=== PATIENT | female | born 1935 | race Caucasian/White ===

== ENCOUNTER 2019-06-03 11:38 | Inpatient (IN) ==
[2019-06-03 13:07] LABS: Basophils % 0.3 %; Eosinophils # 0.2 K/mcL (0.0-0.6); Eosinophils % 2.2 %; Hematocrit 32.8 % (35.3-44.9); Hemoglobin 10.6 g/dL (11.5-15.4); Immature Granulocytes % 0.1 % (0-4); Lymphocytes # 1.5 K/mcL (0.6-4.6); Lymphocytes % 22.4 %; Mean Corpuscular HGB Conc 32.3 g/dL (31.6-35.5); Mean Corpuscular Hemoglobin 29.3 pg (28.0-33.3); Mean Corpuscular Volume 90.6 fL (83.0-100.0); Mean Platelet Volume 8.8 fL (9.4-12.4); Monocytes # 0.7 K/mcL (0.0-1.3); Monocytes % 9.8 %; Neutrophils # 4.4 K/mcL (1.6-8.9); Platelet Count 211 K/mcL (140-400); Red Blood Count 3.62 M/mcL (3.82-4.97); Red Cell Distribution Width 14.1 % (11.5-14.5); Segmented Neutrophils % 65.2 %; White Blood Count 6.7 K/mcL (4.3-11.1)
[2019-06-03 13:22] LABS: Activated Partial Thrombo Time 47.8 Seconds (26.0-36.0)
[2019-06-03 13:25] LABS: BUN/Creatinine Ratio 31 (6-26); Blood Urea Nitrogen 18 mg/dL (8-23); Calcium 8.9 mg/dL (8.6-10.3); Carbon Dioxide 32 mEq/L (23-29); Chloride 101 mEq/L (98-107); Glucose 81 mg/dL (70-105); INR 4.4; Osmolality,Calculated 291 (280-300); Potassium 3.7 mEq/L (3.5-5.1); Prothrombin Time 50.4 Seconds (9.4-12.1); Sodium 140 mEq/L (136-145); eGFR For African Americans > 60 (> 60); eGFR For Non-African Americans > 60 (> 60)
--- NOTE | 2019-06-03 13:25 | Emergency Department Note ---
Disposition Clinical Impression: Supratherapeutic INR Right leg DVT Qualifiers: Affected thrombotic vein of extremity: unspecified vein of extremity Chronicity: unspecified Qualified Code(s): I82.401 - Acute embolism and thrombosis of unspecified deep veins of right lower extremity Disposition: Admitted As Inpatient Condition: Good Time of Disposition: 14:51 General Adult HPI - General Chief complaint: ED Extremity Problem,Nontraumatic Stated complaint: RLE blood clot Time Seen by Provider: 06/03/19 11:49 Source: patient Mode of arrival: ambulatory Limitations: no limitations Nursing Notes Reviewed: Yes Vital Signs Reviewed: Yes - History of Present Illness HPI Narrative: Patient is a 84-year-old female that presents emergency Department with reports of a DVT in the right leg. Patient states that she has had persistent pain and swelling to the right lower extremity despite being on Coumadin. Patient states that she was diagnosed the DVT approximately 3 weeks ago. Patient states that she had an ultrasound this morning and the results. We sent to Dr. Laird. The patient called and spoke with Dr. Laird and he recommended that she come to the emergency department. Patient denies any chest pain or shortness of breath. Patient states that she was told that she should come here to the emergency department be evaluated due to concern for potential thrombectomy. Pain Scale: 5 - Related Data Home Medications Medication Instructions Recorded Confirmed Anastrozole [Arimidex] 1 mg PO DAILY 06/03/19 06/03/19 Aspirin 325 mg PO DAILY 06/03/19 06/03/19 Citalopram Hydrobromide 20 mg PO DAILY 06/03/19 06/03/19 [Citalopram HBr] Lisinopril 40 mg PO DAILY 06/03/19 06/03/19 Metoprolol Tartrate [Lopressor] 50 mg PO BID 06/03/19 06/03/19 Warfarin [Coumadin] 5 mg PO 1800 06/03/19 06/03/19 Allergies Allergy/AdvReac Type Severity Reaction Status Date / Time No Known Allergies Allergy Verified 02/25/19 08:45 All systems ED: reviewed and negative except as stated. Constitutional: Denies: fever Cardiovascular: Denies: chest pain Respiratory: Denies: dyspnea Gastrointestinal: Denies: abdominal pain, nausea, vomiting Genitourinary: Denies: dysuria, frequency, hematuria Musculoskeletal: Reports: other (Right leg pain) Integumentary: Reports: other (Bruising to the right leg) Neurological: Denies: weakness, numbness, paresthesias Past Medical History - Past Medical History Medical history: Reports: asthma, cancer, DVT, hypertension Surgical history: Reports: appendectomy, breast surgery, other Psychiatric history: Reports: no psych history - Social History Smoking Status: Never smoker Smokeless Tobacco Status: No Alcohol use: Reports: none Drug use: Reports: none Physical Exam - General Limitations: no limitations General appearance: alert, in no apparent distress - Head Head exam: atraumatic, normocephalic - Eye Eye exam: Present: normal appearance, EOMI - Neck Neck exam: Present: normal inspection, full ROM, trachea midline - Respiratory Respiratory exam: Present: normal lung sounds bilaterally. Absent: respiratory distress, wheezes - Cardiovascular Cardiovascular exam: Present: regular rate, normal rhythm, normal heart sounds, +S1, +S2 - Abdominal Exam Abdominal exam: Present: soft, Non-Tender, normal bowel sounds - Extremities Exam Extremities exam: Present: other (Patient has swelling to the right lower ext remity. Patient has ecchymosis over the right knee and in her right thigh. Patient states is been there for approximately one week. Patient has 2+ pulses in the DP and PT distribution. Patient has tenderness over the anterior aspect of the thigh.) - Neurological Exam Neurological exam: Present: alert, oriented X3 - Psychiatric Psychiatric exam: Present: normal affect, normal mood - Skin Skin exam: Present: warm, dry, other (Ecchymosis over the medial aspect of the right thigh and right knee.) Course Vital Signs Temperature 98.3 F 06/03/19 11:39 Pulse Rate 69 06/03/19 11:39 Respiratory Rate 18 06/03/19 11:39 Blood Pressure 214/99 06/03/19 11:39 O2 Sat by Pulse Oximetry 96 06/03/19 11:39 Temperature 98.6 F 06/03/19 18:48 Pulse Rate 62 06/03/19 18:48 Respiratory Rate 17 06/03/19 18:48 Blood Pressure 170/73 06/03/19 18:48 O2 Sat by Pulse Oximetry 95 06/03/19 18:48 Oxygen Delivery Oxygen Delivery Room Air Medical Decision Making - MDM Narrative Medical decision making narrative: Due the patient's into emergency department with reports of DVT in the right lower extremity we we will get basic laboratory testing as well as a PT and INR. Patient had an elevated INR of 4.4. Patient states she has been taking her Coumadin as prescribed. Patient had an ultrasound that was obtained this morning an outside facility. We attempted to get the report multiple times however we were unsuccessful. The patient had a repeat DVT study done of the right lower extremity. It was reported as a cute on chronic clot without complete occlusion from the windshield repair technician. Due to there being acute on chronic findings on the ultrasound as well as an elevated INR I think it is most appropriate for the patient to be admitted to the hospital for further evaluation and management. Called and spoke with the admitting hospitalist . - Medical Records Medical records reviewed: Yes I reviewed the patient's medical records. - Lab Data Lab results reviewed: Yes I reviewed the patient's lab results. Result diagrams: 06/03/19 17:06 06/03/19 12:53 Lab Results 06/03/19 06/03/19 06/03/19 Range/Units 12:53 12:53 12:53 WBC 6.7 (4.3-11.1) K/mcL RBC 3.62 L (3.82-4.97) M/mcL Hgb 10.6 L (11.5-15.4) g/dL Hct 32.8 L (35.3-44.9) % MCV 90.6 (83.0-100.0) fL MCH 29.3 (28.0-33.3) pg MCHC 32.3 (31.6-35.5) g/dL RDW 14.1 (11.5-14.5) % Plt Count 211 (140-400) K/mcL MPV 8.8 L (9.4-12.4) fL Immature Gran % 0.1 (0-4) % Seg Neutrophils % 65.2 % Lymphocytes % 22.4 % Monocytes % 9.8 % Eosinophils % 2.2 % Basophils % 0.3 % Neutrophils # 4.4 (1.6-8.9) K/mcL Lymphocytes # 1.5 (0.6-4.6) K/mcL Monocytes # 0.7 (0.0-1.3) K/mcL Eosinophils # 0.2 (0.0-0.6) K/mcL Basophils # 0.0 (0.0-0.2) K/mcL PT 50.4 H* (9.4-12.1) Seconds INR 4.4 H* APTT 47.8 H (26.0-36.0) Seconds Sodium 140 (136-145) mEq/L Potassium 3.7 (3.5-5.1) mEq/L Chloride 101 (98-107) mEq/L Carbon Dioxide 32 H (23-29) mEq/L BUN 18 (8-23) mg/dL Creatinine 0.58 L (0.60-1.20) mg/dL Est GFR ( Amer) > 60 (> 60) Est GFR (Non-Af Amer) > 60 (> 60) BUN/Creatinine Ratio 31 H (6-26) Glucose 81 (70-105) mg/dL Calculated Osmolality 291 (280-300) Calcium 8.9 (8.6-10.3) mg/dL - Radiology Data Radiology results reviewed: Yes I reviewed the patient's radiology results. Attestation Statement - Attestation Attestation: I, Manfred Acosta, examined this patient and my medical decision-making was reviewed with the CHEMICAL MACHINE TENDER/PA/Advanced Practice Nurse/Resident Physician. I agree with the documented findings, disposition and treatment plan as described except to the extent set forth below. 84-year-old female presents emergency Department with concerns of DVT the right lower show any. Patient states she had one performed at outside facility. We are unable to obtain the imaging and therefore it was repeated. A likely shows an acute on chronic clot to the right lower extremity. Patient had increased pain to the right lower extremity. She is currently taking Coumadin and her INR was significantly elevated. She denies recent trauma however she does have some ecchymosis to the right lower extremity. Patient will be admitted to hospitalist for further care and evaluation. She was updated regarding her results. Patient denied chest pain or shortness of breath or palpitations.
[2019-06-03 15:56] LABS: INR 4.9; Prothrombin Time 55.4 Seconds (9.4-12.1)
--- NOTE | 2019-06-03 15:56 | Internal Med History&Physical ---
Date of Encounter: 06/03/19 Time of Encounter: 15:47 Internal Medicine - H&P: HPI Chief complaint: DVT Admitted From: Emergency Dept Plans for Post Hospital Care: Home History of present illness: Ms. Bailey is a 84 year old female w/PMHx s/p mastectomy for breast cancer, HTN, asthma. Family history significant for DVT, factor V leiden. Reports 3 week history of right sided lower extremity swelling, pain, ecchymosis; being treated with Warfarin. Ultrasound of the RLE was performed at an outside facility this morning, we are still attempting to obtain results. Repeat U/S performed in the ED demonstrated acute on chronic clot w/o complete occlusion by mathematical technician. Awaiting radiology for confirmation. Past Med Surg Social Fam HX - Past Medical History Medical history: asthma, cancer, DVT, hypertension Additional medical history: breast cancer, right. fibrocystic breast disease. richards's cyst. osteoarthritis, florinda left knee Psychiatric history: no psych history - Past Surgical History Surgical History: appendectomy, breast surgery, other Additional surgical history: tri-cut right breast biopsy - patient denies. right breast aspiration. D&C - Social History Smoking Status: Never smoker Smokeless Tobacco Status: No Alcohol use: none Drug use: none - Family History Father Hx Family Cancer: (lung cancer) Internal Medicine - H&P: Meds Anastrozole [Arimidex] 1 mg PO DAILY 06/03/19 [History] Aspirin 325 mg PO DAILY 06/03/19 [History] Citalopram Hydrobromide [Citalopram HBr] 20 mg PO DAILY 06/03/19 [History] Lisinopril 40 mg PO DAILY 06/03/19 [History] Metoprolol Tartrate [Lopressor] 50 mg PO BID 06/03/19 [History] Warfarin [Coumadin] 5 mg PO 1800 06/03/19 [History] Allergy/AdvReac Type Severity Reaction Status Date / Time No Known Allergies Allergy Verified 02/25/19 08:45 All Systems PM: A 10-system review of systems was performed and is negative for pertinent findings except as documented above in the HPI. - Constitutional Vitals: Temp Pulse Resp BP Pulse Ox 98.3 F 69 18 180/81 100 06/03/19 11:39 06/03/19 15:43 06/03/19 15:43 06/03/19 15:43 06/03/19 15:43 Internal Med - H&P Results - Labs CBC & Chem 7: 06/03/19 12:53 06/03/19 12:53 Labs: Short CBC 06/03/19 Range/Units 12:53 WBC 6.7 (4.3-11.1) K/mcL Hgb 10.6 L (11.5-15.4) g/dL Hct 32.8 L (35.3-44.9) % Plt Count 211 (140-400) K/mcL Neutrophils # 4.4 (1.6-8.9) K/mcL BMP 06/03/19 12:53 Sodium 140 Potassium 3.7 Chloride 101 Carbon Dioxide 32 H BUN 18 Creatinine 0.58 L Glucose 81 Calcium 8.9
[2019-06-03] MEDS ORDERED: Acetaminophen 325 MG TABLET PO PRN (16:08)
[2019-06-03] MEDS ORDERED: Naloxone 0.4 MG/ML INJ IVP PRN (16:08)
--- NOTE | 2019-06-03 16:08 | Internal Med History&Physical ---
<Ignacio Lewis M - Last Filed: 06/03/19 17:19> Date of Encounter: 06/03/19 Time of Encounter: 16:03 Internal Medicine - H&P: HPI Chief complaint: DVT History of present illness: Ms. Bailey is a 84 year old female w/PMHx s/p mastectomy for breast cancer, HTN, asthma. Family history significant for DVT, factor V leiden. Reports 3 week history of right sided lower extremity swelling, pain, ecchymosis; being treated with Warfarin. Ultrasound of the RLE was performed at an outside facility this morning, we are still attempting to obtain results. Repeat U/S performed in the ED demonstrated acute on chronic clot w/o complete occlusion by respiratory support technician. Awaiting radiology for confirmation. She has denied cp, sob, cough, fevers, chills. History of ductal carcinoma of breast. Treated with mastectomy in January with subsequent radiation therapy. Patient reports that she was started on warfarin without a heparin bridge. We will attempt to contact provider for further information. Coags were drawn in ED PT 50.4, INR 4.4, PTT 47.8. Pt states that she is taking her warfarin as prescribed. She has a mild anemia. No RICO. No leukocytosis. Past Med Surg Social Fam HX - Past Medical History Medical history: asthma, cancer, DVT, hypertension Additional medical history: breast cancer, right. fibrocystic breast disease. richards's cyst. osteoarthritis, florinda left knee Psychiatric history: no psych history - Past Surgical History Surgical History: appendectomy, breast surgery, other Additional surgical history: tri-cut right breast biopsy - patient denies. right breast aspiration. D&C - Social History Smoking Status: Never smoker Smokeless Tobacco Status: No Alcohol use: none Drug use: none - Family History Father Hx Family Cancer: (lung cancer) Mother Living Status: Age at : 87 Cause of : stroke Hx Family Cardiac Disorders: Yes (HTN) Hx Family Neuromuscular Disorders: Yes Hx Family Neurologic Disorders: Yes (Stroke) Internal Medicine - H&P: Meds Anastrozole [Arimidex] 1 mg PO DAILY 06/03/19 [History] Aspirin 325 mg PO DAILY 06/03/19 [History] Citalopram Hydrobromide [Citalopram HBr] 20 mg PO DAILY 06/03/19 [History] Lisinopril 40 mg PO DAILY 06/03/19 [History] Metoprolol Tartrate [Lopressor] 50 mg PO BID 06/03/19 [History] Warfarin [Coumadin] 5 mg PO 1800 06/03/19 [History] Allergy/AdvReac Type Severity Reaction Status Date / Time No Known Allergies Allergy Verified 02/25/19 08:45 All Systems PM: A 10-system review of systems was performed and is negative for pertinent findings except as documented above in the HPI. - Constitutional Constitutional: no chills, no fatigue, no fever(s) - EENT Eyes: no change in vision, no diplopia, no loss of vision Ears: no decreased hearing, no tinnitus Nose, mouth and throat: no change in voice, no dysphagia, no neck mass, no sore throat - Breasts Breasts: no pain, no skin changes, no swelling - Cardiovascular Cardiovascular ROS IM: lightheadedness (occasional, age related orthostasis), no chest pain, no diaphoresis, no dyspnea, no irregular heart rhythm, no palpitations - Respiratory Respiratory: no cough, no hemoptysis, no wheezing - Gastrointestinal Gastrointestinal: no abdominal pain, no change in bowel habits, no constipation, no diarrhea, no heartburn, no nausea, no vomiting - Genitourinary Genitourinary: no breast pain, no breast skin changes, no difficulty urinating, no difficulty voiding, no flank pain, no urinary incontinence Menstruation: post menopausal - Musculoskeletal Musculoskeletal ROS IM: arthralgias, stiffness - Integumentary Additional comments: eccymosis, erythema, edema of RLE extending from ankle to medial thigh. - Neurological Neurological ROS: abnormal gait (secondary to dvt), no behavioral changes, no confusion, no dizziness, no focal weakness, no paresthesias, no vertigo - Psychiatric Psychiatric: anxiety, no change in appetite, no depression, no hallucinations, no paranoia - Endocrine Endocrine IM: no excessive sweating - Hematologic/Lymphatic Hematologic/Lymphatic: easy bleeding, easy bruising Additional comments: warfarin therapy - Allergic/Immunologic Allergic/Immunologic: no tongue swelling, no throat swelling, no itchy eyes, no wheezing - Constitutional Vitals: Temp Pulse Resp BP Pulse Ox 98.3 F 69 18 180/81 100 06/03/19 11:39 06/03/19 15:43 06/03/19 15:43 06/03/19 15:43 06/03/19 15:43 General appearance: Present: A&O X 3. Absent: no acute distress Exam: see below - Head Head exam: Present: atraumatic, normocephalic - Eye Eye exam: Present: EOMI, normal appearance, conjuntiva pink. Absent: scleral icterus Pupils: Present: PERRL - ENT ENT exam: Present: mucous membranes moist, normal oropharynx - Neck Neck exam general surgery: Present: supple. Absent: lymphadenopathy, tenderness - Respiratory Respiratory exam: Present: CTAB. Absent: chest wall tenderness, rales, respiratory distress, rhonchi, wheezes - Cardiovascular Cardiovascular exam: Present: RRR, +S1, +S2. Absent: diastolic murmur, gallop, JVD, systolic murmur - GI/Abdominal GI/Abdominal exam: Present: normal bowel sounds, soft. Absent: distended, hep atomegaly, rebound, rigid, tenderness - Extremities Exam Extremities exam: Absent: cyanotic Additional comments: RLE: severe swelling of the right leg from the right ankle to medial thigh. Significant ecchymosis present throughout with heat changes compared to the left. - Expanded Lower Extremities Exam Lower Leg exam: Present: ecchymosis, erythema, swelling, tenderness - Neurological Exam Neurological exam: Present: alert, CN II-XII intact, oriented X3, no focal deficits - Psychiatric Psychiatric exam: Absent: anxious, depressed - Skin Additional comments: erythema, ecchymosis, swelling of the RLE Internal Med - H&P Results - Labs CBC & Chem 7: 06/03/19 12:53 06/03/19 12:53 Labs: Short CBC 06/03/19 Range/Units 12:53 WBC 6.7 (4.3-11.1) K/mcL Hgb 10.6 L (11.5-15.4) g/dL Hct 32.8 L (35.3-44.9) % Plt Count 211 (140-400) K/mcL Neutrophils # 4.4 (1.6-8.9) K/mcL BMP 06/03/19 12:53 Sodium 140 Potassium 3.7 Chloride 101 Carbon Dioxide 32 H BUN 18 Creatinine 0.58 L Glucose 81 Calcium 8.9 - Assessment and Plan (1) Right leg DVT Current Visit: Yes Status: Acute Assessment and plan: Patient reports being treated with warfarin monotherapy for 3 weeks. Has been having progressive swelling of the RLE since. 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 Family hx of factor V leiden. Pt also has recent history of breast malignancy. Her DVT could be related to hypercoaguble state, warfarin monotherapy, or idiopathic. - D/C home warfarin and start Heparin IVP Q6H with heparin drip for progressive DVT. - Coags including PT, INR, PTT daily. - Monitor platelets daily with CBC. Qualifiers: Affected thrombotic vein of extremity: unspecified vein of extremity Chronicity: unspecified Qualified Code(s): I82.401 - Acute embolism and thrombosis of unspecified deep veins of right lower extremity (2) Migratory thrombophlebitis Current Visit: Yes Status: Suspected Assessment and plan: Based on recent breast cancer history we suspect possibility of Migratory thrombophlebitis. Although there is family history of factor V, it is unlikely that it would present at her age. No significant increased risk for DVT in relation to lifestyle. Pt is a non-smoker, active. - Consult Oncology/Hematology. Recommends continue heparin drip at this time and agreed to take on case. Appreciate their assistance. - CT scan RLE for further evaluation. (3) Supratherapeutic INR Current Visit: Yes Status: Acute Assessment and plan: Initial INR was 4.4. Pt reports compliance with warfarin therapy. - We will hold home warfarin at this time. - Pharmacy and nursing notified of results, will start heparin drip. (4) Breast cancer, right Current Visit: No Status: Acute Assessment and plan: Pt has recent history of right mastectomy for ductal carcinoma. - Oncology consulted for evaluation. Qualifiers: Breast location: combined nipple and areola Estrogen receptor status: positive Patient sex: female Qualified Code(s): C50.011 - Malignant neoplasm of nipple and areola, right female breast; Z17.0 - Estrogen receptor positive status [ER+] (5) Hypertension Current Visit: Yes Status: Acute Assessment and plan: BP trending 214-180/99-81 over the last two hours. Pt is asymptomatic at this time. Creatinine WNL. Denies confusion, visual changes, WRIGHT. - Start home Lisinopril and Lopressor for BP control. - Telemetry until BP control. Qualifiers: Qualified Code(s): I10 - Essential (primary) hypertension - Time Spent With Patient Total time spent is greater than 50% in coordination of care (as documented) at patient's floor/unit and/or counseling patient: <Milton Ervin - Last Filed: 06/03/19 19:38> Date of Encounter: 06/03/19 Internal Medicine - H&P: HPI History of present illness: Ms. Bailey is a 84 year old female All Systems PM: A 10-system review of systems was performed and is negative for pertinent findings except as documented above in the HPI. - Constitutional Vitals: Temp Pulse Resp BP Pulse Ox 98.6 F 62 17 170/73 95 06/03/19 18:48 06/03/19 18:48 06/03/19 18:48 06/03/19 18:48 06/03/19 18:48 Internal Med - H&P Results - Labs CBC & Chem 7: 06/03/19 17:06 06/03/19 12:53 Labs: Short CBC 06/03/19 06/03/19 Range/Units 12:53 17:06 WBC 6.7 6.2 (4.3-11.1) K/mcL Hgb 10.6 L 11.6 (11.5-15.4) g/dL Hct 32.8 L 36.1 (35.3-44.9) % Plt Count 211 197 (140-400) K/mcL Neutrophils # 4.4 (1.6-8.9) K/mcL BMP 06/03/19 12:53 Sodium 140 Potassium 3.7 Chloride 101 Carbon Dioxide 32 H BUN 18 Creatinine 0.58 L Glucose 81 Calcium 8.9 - Assessment and Plan (1) Acute deep vein thrombosis (DVT) of right popliteal vein Current Visit: Yes Status: Acute (2) Hypertension Current Visit: Yes Status: Chronic Qualifiers: Hypertension type: essential hypertension Qualified Code(s): I10 - Essential (primary) hypertension (3) Migratory thrombophlebitis Current Visit: Yes Status: Suspected (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 I agree with the documented findings, disposition and treatment plan as described except to the extent set forth below. 84 y/o female with hx breast cancer and recent diagnosis of RLE DVT presented to ED with increased clot in R leg and increased pain. INR 4.4. Pt has significant pain in leg. Swelling and ecchymosis as well. No fever or chills. No CP or SOB Exam Alert [place]. Mucus membranes dry Heart not tachy now No wheeze Abd nontender RLE with edema to groin. Ecchymosis near knee and thigh. Tender to palpation I/P 1. RLE DVT ? if related to coumadin started with no heparin bridge versus cancer associated (Trousseau syndrome). Heparin drip started monitoring for bleeding CT of leg to r/o hematoma Heme consult
[2019-06-03] MEDS ORDERED: *HR* Heparin 5,000 UNIT/ML VIAL IVP ONE (16:49)
[2019-06-03] MEDS ORDERED: *HR* Heparin 5,000 UNIT/ML VIAL IVP PRN ×2 (16:49)
[2019-06-03] MEDS: Heparin 25,000 UNIT/250 ML D5W 25,000 UNIT/250 ML IV.SOLN IVC SCH (17:36)
[2019-06-03] MEDS: Lisinopril 20 MG TABLET PO SCH (17:36)
[2019-06-03 17:47] LABS: Hematocrit 36.1 % (35.3-44.9); Hemoglobin 11.6 g/dL (11.5-15.4); Mean Corpuscular HGB Conc 32.1 g/dL (31.6-35.5); Mean Corpuscular Hemoglobin 29.7 pg (28.0-33.3); Mean Corpuscular Volume 92.6 fL (83.0-100.0); Platelet Count 197 K/mcL (140-400); Red Cell Distribution Width 14.2 % (11.5-14.5); White Blood Count 6.2 K/mcL (4.3-11.1)
[2019-06-03 17:55] LABS: Heparin anti-factor XA UFH 0.04 IU/mL (0.30-0.70)
[2019-06-03 17:58] LABS: INR 4.4; Prothrombin Time 49.6 Seconds (9.4-12.1)
[2019-06-03] MEDS ORDERED: NIFEdipine 10 MG CAPSULE PO ONE (23:06)
[2019-06-04 01:27] LABS: Basophils % 0.5 %; Eosinophils # 0.3 K/mcL (0.0-0.6); Hematocrit 31.4 % (35.3-44.9); Hemoglobin 10.2 g/dL (11.5-15.4); Immature Granulocytes % 0.3 % (0-4); Lymphocytes # 1.6 K/mcL (0.6-4.6); Lymphocytes % 25.7 %; Mean Corpuscular HGB Conc 32.5 g/dL (31.6-35.5); Mean Corpuscular Hemoglobin 29.7 pg (28.0-33.3); Mean Corpuscular Volume 91.3 fL (83.0-100.0); Mean Platelet Volume 9.1 fL (9.4-12.4); Monocytes # 0.7 K/mcL (0.0-1.3); Monocytes % 10.5 %; Neutrophils # 3.7 K/mcL (1.6-8.9); Platelet Count 194 K/mcL (140-400); Red Blood Count 3.44 M/mcL (3.82-4.97); Red Cell Distribution Width 14.2 % (11.5-14.5); White Blood Count 6.3 K/mcL (4.3-11.1)
[2019-06-04 01:46] LABS: BUN/Creatinine Ratio 23 (6-26); Blood Urea Nitrogen 15 mg/dL (8-23); Calcium 8.6 mg/dL (8.6-10.3); Carbon Dioxide 30 mEq/L (23-29); Chloride 102 mEq/L (98-107); Glucose 167 mg/dL (70-105); Osmolality,Calculated 289 (280-300); Potassium 3.4 mEq/L (3.5-5.1); Sodium 137 mEq/L (136-145); eGFR For African Americans > 60 (> 60); eGFR For Non-African Americans > 60 (> 60)
[2019-06-04 01:59] LABS: Activated Partial Thrombo Time 190.4 Seconds (26.0-36.0); INR 4.8; Prothrombin Time 54.4 Seconds (9.4-12.1)
[2019-06-04] MEDS: Aspirin 325 MG TABLET PO SCH (08:38)
[2019-06-04] MEDS: Anastrozole 1 MG TABLET PO SCH (08:38)
[2019-06-04] MEDS: Lisinopril 20 MG TABLET PO SCH (08:40)
--- NOTE | 2019-06-04 09:39 | Internal Med Progress Note ---
<DebbieJarenIgnacio M - Last Filed: 06/04/19 09:36> Hospitalist Progress Note - Encounter Date of Encounter: 06/04/19 Time of Encounter: 09:20 - Subjective Interval History: Pt awake in bed. No family present at this time. States that she is very active so she is anxious to get out of bed. RLE pain is reported as mild, not improved since admission. Denies cp, sob, n/v, fever, chills. - Exam Vitals: Temp Pulse Resp BP Pulse Ox 98.0 F 73 14 169/72 94 06/04/19 06:33 06/04/19 06:33 06/04/19 06:33 06/04/19 06:33 06/04/19 06:33 Exam: General: A&O X 3. Absent: no acute distress - Head atraumatic, normocephalic - Eye PERRL, EOMI. - ENT mucous membranes moist, normal oropharynx - Neck supple. No lymphadenopathy or tenderness - Respiratory CTAB. No rales, respiratory distress, rhonchi, wheezes - Cardiovascular RRR, +S1, +S2. No JVD, murmurs, rubs, gallops. - GI/Abdominal normal bowel sounds, soft. no distention, hepatomegaly, rebound, rigidity, or tenderness - Extremities Exam RLE: swelling of the right leg from the right ankle to medial thigh appears to be unchanged from previous exam. Significant ecchymosis throughout that has been marked. - Neurological Exam alert, oriented X3, no focal deficits - Skin erythema, ecchymosis, swelling of the RLE - Assessment and Plan (1) Right leg DVT Current Visit: Yes Status: Acute Assessment and Plan: No changes since initiation of Heparin. Warfarin is being held. Pt reports mild pain of the RLE that is unchanged. U/S revealed chronic R femoral thrombus with acute post tibial, popliteal, and peroneal thrombi. - Continue Heparin IVP Q6H with heparin drip. - Coags including PT, INR, PTT daily. - Monitor platelets daily with CBC. (2) Migratory thrombophlebitis Current Visit: Yes Status: Suspected Assessment and Plan: Possibility of migratory thrombophlebitis secondary to breast ca history. Onc/hem was consulted and recommended continuation of heparin drip. Hold warfarin. CT revealed significant edema vs cellulitis. Unlikely to be cellulitis based on examination and laboratory findings. No leukocytosis, fevers, chills. (3) Supratherapeutic INR Current Visit: Yes Status: Acute Assessment and Plan: INR increased from 4.4 to 4.8 since holding warfarin and starting heparin therapy for acute DVT. This is expected and we will continue to monitor with routine coags including CBC. (4) Breast cancer, right Current Visit: No Status: Chronic Assessment and Plan: Onc/hematology was consulted for possibility of migratory thrombophlebitis. Recommended continuation of heparin and holding warfarin at this time. (5) Hypertension Current Visit: Yes Status: Chronic Assessment and Plan: HTN has improved since admission. Was 187/68 at admission. Now trending at the upper 160s/70s. Pt is asymptomatic. - Continue to monitor daily. Tele has been discontinued. - Continue home lisinopril and metoprolol. - Time Spent with Patient Total time spent is greater than 50% in coordination of care (as documented) at patient's floor/unit and/or counseling patient: Internal Medicine: Result - Labs CBC & Chem 7: 06/04/19 00:54 06/04/19 00:54 Labs: Short CBC 06/03/19 06/03/19 06/04/19 Range/Units 12:53 17:06 00:54 WBC 6.7 6.2 6.3 (4.3-11.1) K/mcL Hgb 10.6 L 11.6 10.2 L (11.5-15.4) g/dL Hct 32.8 L 36.1 31.4 L (35.3-44.9) % Plt Count 211 197 194 (140-400) K/mcL Neutrophils # 4.4 3.7 (1.6-8.9) K/mcL BMP 06/03/19 06/04/19 12:53 00:54 Sodium 140 137 Potassium 3.7 3.4 L Chloride 101 102 Carbon Dioxide 32 H 30 H BUN 18 15 Creatinine 0.58 L 0.64 Glucose 81 167 H Calcium 8.9 8.6 - ABG Interpretation ABG results: PT/INR, D-dimer PT 54.4 Seconds (9.4-12.1) H* 06/04/19 00:54 - Impressions Impressions Lower Extremity CT 06/03/19 16:54 IMPRESSION: 1. Circumferential subcutaneous fat stranding in the right lower extremity most severe about the ankle and distal calf and tapering proximally compatible with cellulitis versus bland edema. No drainable fluid collection, soft tissue gas, or evidence of fasciitis. 2. No acute osseous abnormality. 3. Somewhat ill-defined fluid in the soft tissues lateral to the right femoral greater trochanter nonspecific but suggesting trochanteric or sub gluteus medius bursitis. Fatty atrophy of the right gluteus medius and minimus muscles compatible with chronic tears. D/ / Juan Valverde MD / Juan Valverde MD Interpreting Provider: Juan Valverde MD Consult Discharge Plan - Plan Referrals: Hector Laird MD [Primary Care Provider] - (Appt has been requested. 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 (5) Supratherapeutic INR Current Visit: Yes Status: Acute - Time Spent with Patient Total time spent is greater than 50% in coordination of care (as documented) at patient's floor/unit and/or counseling patient: Internal Medicine: Result - Labs CBC & Chem 7: 06/04/19 00:54 06/04/19 00:54 Labs: Short CBC 06/04/19 Range/Units 00:54 WBC 6.3 (4.3-11.1) K/mcL Hgb 10.2 L (11.5-15.4) g/dL Hct 31.4 L (35.3-44.9) % Plt Count 194 (140-400) K/mcL Neutrophils # 3.7 (1.6-8.9) K/mcL BMP 06/04/19 00:54 Sodium 137 Potassium 3.4 L Chloride 102 Carbon Dioxide 30 H BUN 15 Creatinine 0.64 Glucose 167 H Calcium 8.6 - ABG Interpretation ABG results: PT/INR, D-dimer PT 54.4 Seconds (9.4-12.1) H* 06/04/19 00:54 - Impressions Impressions Lower Extremity CT 06/03/19 16:54 IMPRESSION: 1. Circumferential subcutaneous fat stranding in the right lower extremity most severe about the ankle and distal calf and tapering proximally compatible with cellulitis versus bland edema. No drainable fluid collection, soft tissue gas, or evidence of fasciitis. 2. No acute osseous abnormality. 3. Somewhat ill-defined fluid in the soft tissues lateral to the right femoral greater trochanter nonspecific but suggesting trochanteric or sub gluteus medius bursitis. Fatty atrophy of the right gluteus medius and minimus muscles compatible with chronic tears. D/ / Juan Valverde MD / Juan Valverde MD Interpreting Provider: Juan Valverde MD - Attending Attestation I examined this patient and my medical decision-making was reviewed with the Resident Physician on 06/04/19. I agree with the documented findings, disposition and treatment plan as described except to the extent set forth below. Ms Bailey is currently admitted for acute on chronic DVT R leg. She remains moderate to high risk due to potential for worsening clinical status. Ms Bailey is feeling OK. No fever or chills. No CP or SOB. Swelling a little better. Exam Alert. Comfortable. NC. Mucus membranes dry. EOMI. Neck supple. Heart reg and not tachy. No wheeze. Abd soft. No rash. Less edema R leg. I/P 1. DVT - continue heparin. Heme consult. <Ignacio Lewis - Last Filed: 06/04/19 09:36> (1) Right leg DVT Qualifiers: Affected thrombotic vein of extremity: unspecified vein of extremity Chronicity: unspecified Qualified Code(s): I82.401 - Acute embolism and thrombosis of unspecified deep veins of right lower extremity (4) Breast cancer, right Qualifiers: Breast location: combined nipple and areola Estrogen receptor status: positive Patient sex: female Qualified Code(s): C50.011 - Malignant neoplasm of nipple and areola, right female breast; Z17.0 - Estrogen receptor positive status [ER+] (5) Hypertension Qualifiers: Hypertension type: essential hypertension Qualified Code(s): I10 - Essential (primary) hypertension <Milton Ervin - Last Filed: 06/04/19 18:05> (2) Hypertension Qualifiers: Hypertension type: essential hypertension Qualified Code(s): I10 - Essential (primary) hypertension
--- NOTE | 2019-06-04 12:22 | Oncology Inp Consult Note ---
Date of Encounter: 06/04/19 Time of Encounter: 12:00 Assessment and Plan (1) Right leg DVT Status: Acute Assessment and plan: History of chronic thrombosis, with acute DVT, patient was on Coumadin with supratherapeutic INR. Heparin initiated with symptomatic findings of acute DVT. Patient also has bursitis as noted in CT imaging and still has pain in the hip. We had a detailed discussion with patient's family who had numerous questions regarding why patient has DVT, when her pain will improve and so on. She gives some history in family of protein C protein S deficiency. 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 To consider alternative anticoagulation withxarelto or eliquis on discharge. Hx stage I breast ca, s/p surgery, RT and on AI. She is to f/u outpt with he hospital admissions officer/oncologist for breast ca and DVT Qualifiers: Affected thrombotic vein of extremity: unspecified vein of extremity Chronicity: unspecified Qualified Code(s): I82.401 - Acute embolism and thrombosis of unspecified deep veins of right lower extremity - Data of Consult Requesting Physician: Milton Ervin DO Primary Care Provider: Hector Laird MD - Consult Narrative Reason for consult: Thrombosis History of present illness: 84 yo female with medical hx significant for cT1c cN0 cM0 invasive carcinoma with lobular features, ER+ (98%), MD+ (90%), HER2-. Grade 2. s/p right mastectomy and SLN on 01/14/19: pT2 (3.8 cm) pN0 (0/2), invasive lobular carcinoma, Grade 2, LVI-, margins positive on inferior aspect of specimen. She completed radiotherapy and is on AI, started a month ago. She has medical hx significant for DVT, was on coumadin hospitalized for new thrombosis, INR ~4 with rt lower ext swelling pain. Lower extremity Doppler shows right superficial femoral vein through tibial vein acute thrombosis. Chronic partially occlusive thrombus in the right common femoral and acute partially occlusive thrombus in the right superficial femoral and partially occlusive thrombus in the right popliteal, right posterior tibial, right peroneal veins. A CT lower ext: Circumferential subcutaneous fat stranding in the right lower extremity most severe about the ankle and distal calf. Trochanteric or subgluteus medius bursitis. Patient does not have any pain in the right calf or ankle. She has discomfort in the right hip. She denies any shortness of breath. Review of systems is also negative for any bleeding issues. She is currently started on IV heparin. Pain is little improved after heparin. She is active, continues to work outside of home. She has been compliant with her medications at home. Past Med Surg Social Fam HX - Past Medical History Medical history: asthma, cancer, DVT, hypertension Additional medical history: breast cancer, right. fibrocystic breast disease. richards's cyst. osteoarthritis, florinda left knee Psychiatric history: no psych history - Past Surgical History Surgical History: appendectomy, breast surgery, other Additional surgical history: tri-cut right breast biopsy - patient denies. right breast aspiration. D&C - Social History Smoking Status: Never smoker Smokeless Tobacco Status: No Alcohol use: none Drug use: none - Family History Father Living Status: Age at : 71 Cause of : Lung cancer Hx Family Cancer: (lung cancer, black lung and emphysemia) Mother Living Status: Age at : 87 Cause of : stroke Hx Family Cardiac Disorders: Yes (HTN) Hx Family Neuromuscular Disorders: Yes Hx Family Neurologic Disorders: Yes (Stroke) Medications and Allergies Anastrozole [Arimidex] 1 mg PO DAILY 06/03/19 [History] Aspirin 325 mg PO DAILY 06/03/19 [History] Citalopram Hydrobromide [Citalopram HBr] 20 mg PO DAILY 06/03/19 [History] Lisinopril [Zestril] 40 mg PO DAILY 06/03/19 [History] Metoprolol Tartrate [Lopressor] 50 mg PO BID 06/03/19 [History] Warfarin [Coumadin] 5 mg PO 1800 06/03/19 [History] Allergy/AdvReac Type Severity Reaction Status Date / Time No Known Allergies Allergy Verified 06/04/19 10:05 All systems: reviewed and no additional remarkable complaints except as stated (mentioned in HPI) Oncology - Exam - Constitutional General appearance: no acute distress - Head Head exam: Present: atraumatic, normal inspection - Eye Eye exam: Present: sclera anicteric - ENT ENT exam: Present: mucous membranes dry - Neck Neck exam: Present: normal inspection - Respiratory Respiratory exam: Present: CTAB - GI/Abdominal Additional comments: non distended - Extremities Exam Extremities exam: Present: pedal edema Additional comments: rt lower ext - Neurological Exam Neurological exam: Present: alert, CN II-XII intact, oriented X3, no focal deficits - Psychiatric Psychiatric exam: Present: normal affect - Skin Skin exam: Present: dry, normal color, warm Oncology Inpatient Results Labs: mild anemia cbcd doppler-CT imaging per HPI Consult Discharge Plan - Plan Referrals: Hector Laird MD [Primary Care Provider] - Inpatient Charges Provider: Dr. Tianna Duarte Consult - Inpatient: [id number]
[2019-06-04] MEDS: Heparin 25,000 UNIT/250 ML D5W 25,000 UNIT/250 ML IV.SOLN IVC SCH (21:00)
[2019-06-05 03:03] LABS: Basophils % 0.3 %; Eosinophils # 0.2 K/mcL (0.0-0.6); Eosinophils % 3.4 %; Hematocrit 34.1 % (35.3-44.9); Hemoglobin 10.9 g/dL (11.5-15.4); Immature Granulocytes % 0.3 % (0-4); Lymphocytes # 1.4 K/mcL (0.6-4.6); Lymphocytes % 23.5 %; Mean Corpuscular Hemoglobin 29.7 pg (28.0-33.3); Mean Corpuscular Volume 92.9 fL (83.0-100.0); Mean Platelet Volume 9.5 fL (9.4-12.4); Monocytes # 0.7 K/mcL (0.0-1.3); Monocytes % 11.9 %; Neutrophils # 3.6 K/mcL (1.6-8.9); Platelet Count 201 K/mcL (140-400); Red Blood Count 3.67 M/mcL (3.82-4.97); Red Cell Distribution Width 14.4 % (11.5-14.5); Segmented Neutrophils % 60.6 %
[2019-06-05 03:06] LABS: BUN/Creatinine Ratio 28 (6-26); Blood Urea Nitrogen 19 mg/dL (8-23); Calcium 8.8 mg/dL (8.6-10.3); Carbon Dioxide 30 mEq/L (23-29); Chloride 101 mEq/L (98-107); Glucose 113 mg/dL (70-105); Osmolality,Calculated 291 (280-300); Sodium 139 mEq/L (136-145); eGFR For African Americans > 60 (> 60); eGFR For Non-African Americans > 60 (> 60)
[2019-06-05 03:21] LABS: INR 4.1
[2019-06-05 03:23] LABS: Prothrombin Time 47.2 Seconds (9.4-12.1)
[2019-06-05 03:37] LABS: Activated Partial Thrombo Time 166.7 Seconds (26.0-36.0)
[2019-06-05 03:41] LABS: Heparin anti-factor XA UFH 0.41 IU/mL (0.30-0.70)
--- NOTE | 2019-06-05 06:44 | Event Note ---
Date of Encounter: 06/05/19 Time of Encounter: 06:17 Alerted by patient's nurse ULISES Green that she had rounded on patient's and found this patient to have 300 mL some bright red blood in Dsah bag. Patient is on heparin gtt. due to multiple DVTs in RLE. Discussed pt. w/Dr. Kilgore d/t current hematuria vs. DVTs w/recommendation to monitor pt. and urinary output very closely for worsening hematuria and/or drop in Hgb. Nurse instructed to continue heparin gtt due to benefits outweigh the risks currently. Second peripheral IV ordered for IV fluids to run at 75 MLS per hour. Patient's urinary output to be monitored very closely and timed H&H's every 4 hours beginning now ordered. Nurse instructed to monitor patient very closely, alert day team of situation, and alert day Hospitalist of any adverse changes.
[2019-06-05] MEDS: 0.9 % Sodium Chloride 1,000 ML IVC SCH ×2 (06:58→19:50)
--- NOTE | 2019-06-05 07:26 | Internal Med Progress Note ---
<DebbieIgnacio M - Last Filed: 06/05/19 12:14> Hospitalist Progress Note - Encounter Date of Encounter: 06/05/19 Time of Encounter: 07:25 - Subjective Interval History: Pt awake, eating in bed, comfortable. States that her leg discomfort has improved since yesterday. She is still anxious to get home. She had episode of hematuria early this morning. We discussed importance of monitoring today before being discharged on Xarelto which she agreed. - Exam Vitals: Temp Pulse Resp BP Pulse Ox 97.9 F 71 14 182/79 95 06/05/19 03:30 06/05/19 03:30 06/05/19 03:30 06/05/19 03:30 06/05/19 03:30 Exam: General: A&O X 3. Absent: no acute distress Head: atraumatic, normocephalic Eyes: EOMI, conjunctiva normal ENT: mucous membranes moist Resp: CTAB. No rales, respiratory distress, rhonchi, wheezes CV: RRR, +S1, +S2. No JVD, murmurs, rubs, gallops. GI: BS normoactive throughout, soft. No distention, rigidity, or tenderness Ext: RLE: swelling of the right leg from the right ankle to medial thigh appears to be slightly improved from previous exam. Ecchymosis has improved significantly since yesterday although still present. Tavo: CN grossly intact, no focal deficits Skin: erythema, ecchymosis, swelling of the RLE - Assessment and Plan (1) Right leg DVT Current Visit: Yes Status: Acute Assessment and Plan: RLE DVT appears to be improving. Pt endorses decreased pain. Awaiting heme/onc consultation with plan to d/c on xarelto, however pt had episode of 300 ml hematuria this morning. - Started IV fluids, vitamin k. - Will monitor for increasing hematuria today. - Continue heparin. Hold warfarin. (2) Hematuria Current Visit: Yes Status: Acute Assessment and Plan: Patient had a single episode of 300 ml hematuria this morning. This could be related to her current anti-coagulation or aromatase inhibitor therapy. - IV fluids were started. - Vitamin K 2.5 mg PO once. - Continue to monitor with goal of d/c on xarelto if sxs resolve. Awaiting further recs from heme/onco. (3) Supratherapeutic INR Current Visit: Yes Status: Acute Assessment and Plan: INR has decreased from 4.8 to 4.1 today. PT has also decreased from 54.4 to 47.2, we will continue to monitor. - Vitamin K given today for hematuria. - Continue to hold warfarin. - Plan to d/c home on xarelto. (4) Breast cancer, right Current Visit: No Status: Chronic Assessment and Plan: Heme/oncology consulted. Awaiting recs. It is possible that hematuria could be vaginal bleeding from aromatase inhibitor therapy. - Continue to monitor for signs of hematuria/vaginal bleeding. (5) Migratory thrombophlebitis Current Visit: Yes Status: Suspected Assessment and Plan: Possibility of migratory thrombophlebitis secondary to breast ca history. Onc/hem consulted. - Continue heparin drip at this time. - Hold warfarin with plan to d/c on xarelto. (6) Hypertension Current Visit: Yes Status: Chronic Assessment and Plan: HTN has improved since admission. Current BP 170/71. Pt is asymptomatic. - Vitals Q4H. - Continue home lisinopril and metoprolol. - Time Spent with Patient Total time spent is greater than 50% in coordination of care (as documented) at patient's floor/unit and/or counseling patient: Plan of Care Discussed with: patient Internal Medicine: Result - Labs CBC & Chem 7: 06/05/19 08:51 06/05/19 01:39 Labs: Short CBC 06/05/19 Range/Units 01:39 WBC 6.0 (4.3-11.1) K/mcL Hgb 10.9 L (11.5-15.4) g/dL Hct 34.1 L (35.3-44.9) % Plt Count 201 (140-400) K/mcL Neutrophils # 3.6 (1.6-8.9) K/mcL BMP 06/05/19 01:39 Sodium 139 Potassium 4.0 Chloride 101 Carbon Dioxide 30 H BUN 19 Creatinine 0.67 Glucose 113 H Calcium 8.8 - ABG Interpretation ABG results: PT/INR, D-dimer PT 47.2 Seconds (9.4-12.1) H* 06/05/19 01:39 Consult Discharge Plan - Plan Referrals: Hector Laird MD [Primary Care Provider] - (Appt has been requested. 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: Yes Status: Resolved (5) Supratherapeutic INR Current Visit: Yes Status: Acute - Time Spent with Patient Total time spent is greater than 50% in coordination of care (as documented) at patient's floor/unit and/or counseling patient: Internal Medicine: Result - Labs CBC & Chem 7: 06/05/19 16:53 06/05/19 01:39 Labs: Short CBC 06/05/19 06/05/19 06/05/19 Range/Units 01:39 08:51 12:29 WBC 6.0 (4.3-11.1) K/mcL Hgb 10.9 L 11.9 10.9 L (11.5-15.4) g/dL Hct 34.1 L 36.3 33.2 L (35.3-44.9) % Plt Count 201 (140-400) K/mcL Neutrophils # 3.6 (1.6-8.9) K/mcL 06/05/19 Range/Units 16:53 WBC (4.3-11.1) K/mcL Hgb 10.5 L (11.5-15.4) g/dL Hct 32.2 L (35.3-44.9) % Plt Count (140-400) K/mcL Neutrophils # (1.6-8.9) K/mcL BMP 06/05/19 01:39 Sodium 139 Potassium 4.0 Chloride 101 Carbon Dioxide 30 H BUN 19 Creatinine 0.67 Glucose 113 H Calcium 8.8 - ABG Interpretation ABG results: PT/INR, D-dimer PT 47.2 Seconds (9.4-12.1) H* 06/05/19 01:39 - Attending Attestation I examined this patient and my medical decision-making was reviewed with the Resident Physician on 06/05/19. I agree with the documented findings, disposition and treatment plan as described except to the extent set forth below. Ms Bailey is currently admitted for acute on chronic DVT R leg. She remains moderate to high risk due to potential for worsening clinical status. Ms Bailey had hematuria this AM. No pain. Feels her leg is improving. No fever or chills. Exam ALert. Comfortable. Mucus membranes dry Heart not tachy Leg less edematous Plan Continue IV heparin today and watch for further bleeding and monitor H/H. Hold Xarelto today. <Ignacio Lewis - Last Filed: 06/05/19 12:14> (1) Right leg DVT Qualifiers: Affected thrombotic vein of extremity: unspecified vein of extremity Chronicity: unspecified Qualified Code(s): I82.401 - Acute embolism and thrombosis of unspecified deep veins of right lower extremity (4) Breast cancer, right Qualifiers: Breast location: combined nipple and areola Estrogen receptor status: positive Patient sex: female Qualified Code(s): C50.011 - Malignant neoplasm of nipple and areola, right female breast; Z17.0 - Estrogen receptor positive status [ER+] (6) Hypertension Qualifiers: Hypertension type: essential hypertension Qualified Code(s): I10 - Essential (primary) hypertension <Milton Ervin - Last Filed: 06/05/19 17:26> (2) Hypertension Qualifiers: Hypertension type: essential hypertension Qualified Code(s): I10 - Essential (primary) hypertension
[2019-06-05 09:06] LABS: Hematocrit 36.3 % (35.3-44.9); Hemoglobin 11.9 g/dL (11.5-15.4)
[2019-06-05] MEDS: Lisinopril 20 MG TABLET PO SCH (09:59)
[2019-06-05] MEDS: Aspirin 325 MG TABLET PO SCH (09:59)
[2019-06-05] MEDS: Anastrozole 1 MG TABLET PO SCH (09:59)
[2019-06-05] MEDS ORDERED: *HR* Phytonadione 5 MG TABLET PO ONE (11:51)
[2019-06-05 13:08] LABS: Hematocrit 33.2 % (35.3-44.9); Hemoglobin 10.9 g/dL (11.5-15.4)
[2019-06-05] MEDS ORDERED: Furosemide 40 MG/4 ML VIAL IVP ONE (17:00)
[2019-06-05 17:11] LABS: Hematocrit 32.2 % (35.3-44.9); Hemoglobin 10.5 g/dL (11.5-15.4)
[2019-06-05 21:29] LABS: Hematocrit 33.2 % (35.3-44.9); Hemoglobin 10.8 g/dL (11.5-15.4)
[2019-06-06 00:50] LABS: Hematocrit 32.4 % (35.3-44.9); Hemoglobin 10.5 g/dL (11.5-15.4)
[2019-06-06 00:53] LABS: Activated Partial Thrombo Time 72.7 Seconds (26.0-36.0); INR 1.6; Prothrombin Time 17.8 Seconds (9.4-12.1)
[2019-06-06 01:00] LABS: BUN/Creatinine Ratio 33 (6-26); Blood Urea Nitrogen 19 mg/dL (8-23); Calcium 8.7 mg/dL (8.6-10.3); Carbon Dioxide 29 mEq/L (23-29); Chloride 100 mEq/L (98-107); Glucose 107 mg/dL (70-105); Osmolality,Calculated 285 (280-300); Potassium 3.9 mEq/L (3.5-5.1); Sodium 136 mEq/L (136-145); eGFR For African Americans > 60 (> 60); eGFR For Non-African Americans > 60 (> 60)
[2019-06-06] MEDS: Heparin 25,000 UNIT/250 ML D5W 25,000 UNIT/250 ML IV.SOLN IVC SCH (04:52)
--- NOTE | 2019-06-06 07:53 | Internal Med Progress Note ---
<Ignacio Lewis Laxmi - Last Filed: 06/06/19 10:04> Hospitalist Progress Note - Encounter Date of Encounter: 06/06/19 Time of Encounter: 07:53 - Subjective Interval History: Pt awake, alert, laying in bed comfortably. Reports that her leg is tool tender although improved significantly since admission. Is having continued hematuria last night and this morning which is concerning to her. She also endorses some increasing fatigue today. We discussed plan and addition of urology to consult for hematuria. - Exam Vitals: Temp Pulse Resp BP Pulse Ox 98.6 F 97 16 161/74 94 06/06/19 07:08 06/06/19 07:08 06/06/19 07:08 06/06/19 07:08 06/06/19 07:08 Exam: General: A&O X 3. Appears more fatigued than yesterday. Head: atraumatic, normocephalic Eyes: EOMI, conjunctiva normal ENT: mucous membranes moist Resp: CTAB. No rales, respiratory distress, rhonchi, wheezes CV: RRR, +S1, +S2. No JVD, murmurs, rubs, gallops. GI: BS normoactive throughout, soft. No distention, rigidity, or tenderness Ext: RLE: swelling of the right leg from the right ankle to medial thigh appears continuing to improve. Tenderness improved. Ecchymosis present and unchanged from yesterday. Tavo: CN grossly intact, no focal deficits Skin: erythema, ecchymosis, swelling of the RLE - Assessment and Plan (1) Right leg DVT Current Visit: Yes Status: Acute Assessment and Plan: RLE DVT improving. Awaiting heme/onc consultation with plan to d/c on xarelto. Urology consulted for continued hematuria. - Hold heparin at this time per urology recs. Appreciate there assistance. - Will monitor for increasing hematuria today. (2) Hematuria Current Visit: Yes Status: Acute Assessment and Plan: Patient reports increasing hematuria today. Likely related to heparin drip. Urology consulted and agreed to see pt. Appreciate there assistance. - Hold heparin per urology recs. - IV fluids. - Continue to monitor with goal of d/c on xarelto if sxs resolve. Awaiting further recs from heme/onco and urology. (3) Supratherapeutic INR Current Visit: Yes Status: Acute Assessment and Plan: INR has decreased from 4.1 to 1.6 today. PT decreased from 47.2 to 17.8, we will continue to monitor. - Urology consulted for increasing hematuria. - Hold heparin at this time. - Continue to hold warfarin. - Plan to d/c home on xarelto, awaiting recs from heme/onc and urology. (4) Breast cancer, right Current Visit: No Status: Chronic Assessment and Plan: Heme/oncology consulted. Awaiting recs. (5) Hypertension Current Visit: Yes Status: Chronic Assessment and Plan: HTN has improved since admission. Current BP 161/74. Pt is asymptomatic. - Vitals Q4H. - Continue home lisinopril and metoprolol. - Time Spent with Patient Total time spent is greater than 50% in coordination of care (as documented) at patient's floor/unit and/or counseling patient: Plan of Care Discussed with: patient Internal Medicine: Result - Labs CBC & Chem 7: 06/06/19 00:29 06/06/19 00:29 Labs: Short CBC 06/05/19 06/05/19 06/05/19 Range/Units 08:51 12:29 16:53 Hgb 11.9 10.9 L 10.5 L (11.5-15.4) g/dL Hct 36.3 33.2 L 32.2 L (35.3-44.9) % 06/05/19 06/06/19 Range/Units 20:52 00:29 Hgb 10.8 L 10.5 L (11.5-15.4) g/dL Hct 33.2 L 32.4 L (35.3-44.9) % BMP 06/06/19 00:29 Sodium 136 Potassium 3.9 Chloride 100 Carbon Dioxide 29 BUN 19 Creatinine 0.58 L Glucose 107 H Calcium 8.7 - ABG Interpretation ABG results: PT/INR, D-dimer PT 17.8 Seconds (9.4-12.1) H D 06/06/19 00:29 Consult Discharge Plan - Plan Referrals: Hector Laird MD [Primary Care Provider] - (Appt has been requested. 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 (5) Supratherapeutic INR Current Visit: Yes Status: Acute - Time Spent with Patient Total time spent is greater than 50% in coordination of care (as documented) at patient's floor/unit and/or counseling patient: Internal Medicine: Result - Labs CBC & Chem 7: 06/06/19 09:52 06/06/19 00:29 Labs: Short CBC 06/05/19 06/05/19 06/06/19 Range/Units 16:53 20:52 00:29 WBC (4.3-11.1) K/mcL Hgb 10.5 L 10.8 L 10.5 L (11.5-15.4) g/dL Hct 32.2 L 33.2 L 32.4 L (35.3-44.9) % Plt Count (140-400) K/mcL Neutrophils # (1.6-8.9) K/mcL 06/06/19 Range/Units 09:52 WBC 6.8 (4.3-11.1) K/mcL Hgb 10.7 L (11.5-15.4) g/dL Hct 33.0 L (35.3-44.9) % Plt Count 182 (140-400) K/mcL Neutrophils # 4.9 (1.6-8.9) K/mcL BMP 06/06/19 00:29 Sodium 136 Potassium 3.9 Chloride 100 Carbon Dioxide 29 BUN 19 Creatinine 0.58 L Glucose 107 H Calcium 8.7 Urine 06/06/19 Range/Units 10:48 Urine Color Red A (Yellow) Urine Clarity Cloudy A (Clear) Urine pH 7.5 (5.0-8.0) pH Units Ur Specific [place] 1.014 (1.010-1.025) Urine Protein 30 H (Neg-Trace) mg/dL Urine Glucose (UA) Normal (Normal) mg/dL - ABG Interpretation ABG results: PT/INR, D-dimer PT 17.8 Seconds (9.4-12.1) H D 06/06/19 00:29 - Attending Attestation I examined this patient and my medical decision-making was reviewed with the Resident Physician on 06/06/19. I agree with the documented findings, disposition and treatment plan as described except to the extent set forth below. Ms Bailey is currently admitted for DVT and now has gross hematuria. She remains moderate to high risk due to potential for worsening clinical status. Ms Bailey continues to have some hematuria. No pain. Leg continues to feel better. No CP or SOB. Exam ALert. Comfortable. NC. Mucus membranes dry. EOMI. Leg less swollen. Heart not tachy. Plan: Urology eval. Heparin on hold right now. Need further hemeonc input. <Ignacio Lewis M - Last Filed: 06/06/19 10:04> (1) Right leg DVT Qualifiers: Affected thrombotic vein of extremity: unspecified vein of extremity Chronicity: unspecified Qualified Code(s): I82.401 - Acute embolism and thrombosis of unspecified deep veins of right lower extremity (4) Breast cancer, right Qualifiers: Breast location: combined nipple and areola Estrogen receptor status: positive Patient sex: female Qualified Code(s): C50.011 - Malignant neoplasm of nipple and areola, right female breast; Z17.0 - Estrogen receptor positive status [ER+] (5) Hypertension Qualifiers: Hypertension type: essential hypertension Qualified Code(s): I10 - Essential (primary) hypertension <Milton Ervin - Last Filed: 06/06/19 15:58> (2) Hypertension Qualifiers: Hypertension type: essential hypertension Qualified Code(s): I10 - Essential (primary) hypertension
[2019-06-06] MEDS: 0.9 % Sodium Chloride 1,000 ML IVC SCH (08:50)
[2019-06-06] MEDS: Lisinopril 20 MG TABLET PO SCH (08:51)
[2019-06-06] MEDS: Anastrozole 1 MG TABLET PO SCH (08:51)
[2019-06-06] MEDS: Aspirin 325 MG TABLET PO SCH (08:51)
[2019-06-06 10:04] LABS: Basophils % 0.3 %; Eosinophils # 0.1 K/mcL (0.0-0.6); Eosinophils % 1.8 %; Hemoglobin 10.7 g/dL (11.5-15.4); Immature Granulocytes % 0.3 % (0-4); Lymphocytes # 1.2 K/mcL (0.6-4.6); Lymphocytes % 16.9 %; Mean Corpuscular HGB Conc 32.4 g/dL (31.6-35.5); Mean Corpuscular Hemoglobin 29.9 pg (28.0-33.3); Mean Corpuscular Volume 92.2 fL (83.0-100.0); Mean Platelet Volume 8.8 fL (9.4-12.4); Monocytes # 0.6 K/mcL (0.0-1.3); Monocytes % 9.4 %; Neutrophils # 4.9 K/mcL (1.6-8.9); Platelet Count 182 K/mcL (140-400); Red Blood Count 3.58 M/mcL (3.82-4.97); Red Cell Distribution Width 14.5 % (11.5-14.5); Segmented Neutrophils % 71.3 %; White Blood Count 6.8 K/mcL (4.3-11.1)
--- NOTE | 2019-06-06 10:56 | Urology - Consult Note ---
Date of Encounter: 06/06/19 Time of Encounter: 10:56 - Assessment and Plan (1) Hematuria Current Visit: Yes Status: Acute Assessment and plan: Patient was significant gross hematuria according to her description. We will plan on ordering urinalysis and urine culture. I am asked if possible to hold her heparin drip for short time frame to see if this will help improve her bleeding. Most likely cause in this age group is a bladder infection. If urinalysis negative for infection and hematuria continues will need CT abdomen and pelvis and outpatient cystoscopy. Attempting my best to avoid catheter drainage at this time. Qualifiers: Hematuria type: gross Qualified Code(s): R31.0 - Gross hematuria (2) Supratherapeutic INR Current Visit: Yes Status: Acute Assessment and plan: Likely contribute into her bleeding. INR improved towards normal at this time. Urology CN:HPI Consult date: 06/06/19 Reason for consult Urology: Gross Hematuria Requesting physician: Ignacio Lewis History of present illness: Shantel is a 84-year-old female who was admitted to the hospital secondary to a progressive DVT as well as a supratherapeutic INR. Patient has developed some gross hematuria off and on since arrival to the hospital. Patient denies voiding issues prior to arrival. No urinalysis has been performed. Patient with no recent upper tract imaging. Patient denies any pain with voiding. Past Med Surg Social Fam HX - Past Medical History Medical history: asthma, cancer, DVT, hypertension Additional medical history: breast cancer, right. fibrocystic breast disease. richards's cyst. osteoarthritis, florinda left knee Psychiatric history: no psych history - Past Surgical History Surgical History: appendectomy, breast surgery, other Additional surgical history: tri-cut right breast biopsy - patient denies. right breast aspiration. D&C - Social History Smoking Status: Never smoker Smokeless Tobacco Status: No Alcohol use: none Drug use: none - Family History Father Living Status: Age at : 71 Cause of : Lung cancer Hx Family Cancer: (lung cancer, black lung and emphysemia) Mother Living Status: Age at : 87 Cause of : stroke Hx Family Cardiac Disorders: Yes (HTN) Hx Family Neuromuscular Disorders: Yes Hx Family Neurologic Disorders: Yes (Stroke) Medications and Allergies Anastrozole [Arimidex] 1 mg PO DAILY 06/03/19 [History] Aspirin 325 mg PO DAILY 06/03/19 [History] Citalopram Hydrobromide [Citalopram HBr] 20 mg PO DAILY 06/03/19 [History] Lisinopril [Zestril] 40 mg PO DAILY 06/03/19 [History] Metoprolol Tartrate [Lopressor] 50 mg PO BID 06/03/19 [History] Warfarin [Coumadin] 5 mg PO 1800 06/03/19 [History] Allergy/AdvReac Type Severity Reaction Status Date / Time No Known Allergies Allergy Verified 06/04/19 10:05 Review of Systems - Constitutional no chills, no fever(s) - EENT Nose, mouth and throat: no dizziness - Cardiovascular no chest pain, no dyspnea, no edema - Respiratory no cough - Gastrointestinal no abdominal pain, no nausea, no vomiting - Genitourinary Genitourinary: as per HPI - Musculoskeletal no back pain - Integumentary no swelling, no unusual bruising - Neurological no sensory deficit, no syncope - Psychiatric no confusion, no depression - Hematologic/Lymphatic no easy bruising, no lymphadenopathy - Allergic/Immunologic no wheezing Exam Initial Vital Signs Temp Pulse Resp BP Pulse Ox 98.3 F 69 18 214/99 96 06/03/19 11:39 06/03/19 11:39 06/03/19 11:39 06/03/19 11:39 06/03/19 11:39 General/Neuological: alert and oriented x 3 Eyes: normal pupils, non-icteric Neck: no lymphadenopathy noted, supple to touch Cardiovascular: RRR, no murmurs Respiratory: normal respiratory effort, clear bilaterally ABD: soft, nontender, no masses palpated, good bowel sounds Back: no pain on percussion bilaterally Skin: no rashes noted Musculoskeletal: normal gait, FROMx4 Urology Results - Labs 06/06/19 09:52 06/06/19 00:29 Abnormal lab results RBC 3.58 M/mcL (3.82-4.97) L 06/06/19 09:52 Hgb 10.7 g/dL (11.5-15.4) L 06/06/19 09:52 Hct 33.0 % (35.3-44.9) L 06/06/19 09:52 MPV 8.8 fL (9.4-12.4) L 06/06/19 09:52 PT 17.8 Seconds (9.4-12.1) H D 06/06/19 00:29 INR 4.8 H* 06/04/19 00:54 APTT 72.7 Seconds (26.0-36.0) H D 06/06/19 00:29 Heparin Anti-Xa, Unfract 0.04 IU/mL (0.30-0.70) L 06/03/19 17:06 Potassium 3.4 mEq/L (3.5-5.1) L 06/04/19 00:54 Carbon Dioxide 30 mEq/L (23-29) H 06/05/19 01:39 Creatinine 0.58 mg/dL (0.60-1.20) L 06/06/19 00:29 BUN/Creatinine Ratio 33 (6-26) H 06/06/19 00:29 Glucose 107 mg/dL (70-105) H 06/06/19 00:29 Diabetes panel 06/06/19 Range/Units 00:29 Sodium 136 (136-145) mEq/L Potassium 3.9 (3.5-5.1) mEq/L Chloride 100 (98-107) mEq/L Carbon Dioxide 29 (23-29) mEq/L BUN 19 (8-23) mg/dL Creatinine 0.58 L (0.60-1.20) mg/dL Glucose 107 H (70-105) mg/dL Calcium 8.7 (8.6-10.3) mg/dL Calcium panel 06/06/19 Range/Units 00:29 Calcium 8.7 (8.6-10.3) mg/dL Pituitary panel 06/06/19 Range/Units 00:29 Sodium 136 (136-145) mEq/L Potassium 3.9 (3.5-5.1) mEq/L Chloride 100 (98-107) mEq/L Carbon Dioxide 29 (23-29) mEq/L BUN 19 (8-23) mg/dL Creatinine 0.58 L (0.60-1.20) mg/dL Glucose 107 H (70-105) mg/dL Calcium 8.7 (8.6-10.3) mg/dL Adrenal panel 06/06/19 Range/Units 00:29 Sodium 136 (136-145) mEq/L Potassium 3.9 (3.5-5.1) mEq/L Chloride 100 (98-107) mEq/L Carbon Dioxide 29 (23-29) mEq/L BUN 19 (8-23) mg/dL Creatinine 0.58 L (0.60-1.20) mg/dL Glucose 107 H (70-105) mg/dL Calcium 8.7 (8.6-10.3) mg/dL All other labs normal. Consult Discharge Plan - Plan Referrals: Hector Laird MD [Primary Care Provider] - (Appt has been requested. )
[2019-06-06 11:30] LABS: Bilirubin,Urine Negative (Negative); Blood,Urine Large (Negative); Glucose,Urine (UA) Normal (Normal); Ketones,Urine Negative (Negative); Leukocyte Esterase,Urine Negative (Negative); Nitrite,Urine Negative (Negative); PH,Urine 7.5 pH Units (5.0-8.0); Protein,Urine 30 mg/dL (Neg-Trace); Specific Gravity,Urine 1.014 (1.010-1.025); Urobilinogen,Urine Normal (Normal)
[2019-06-06 11:31] LABS: Color,Urine Red (Yellow)
[2019-06-06 11:32] LABS: Clarity,Urine Cloudy (Clear)
[2019-06-07] MEDS: 0.9 % Sodium Chloride 1,000 ML IVC SCH ×2 (00:27→12:58)
[2019-06-07 04:40] LABS: Basophils % 0.3 %; Eosinophils # 0.2 K/mcL (0.0-0.6); Eosinophils % 3.5 %; Hematocrit 33.6 % (35.3-44.9); Hemoglobin 10.9 g/dL (11.5-15.4); Immature Granulocytes % 0.2 % (0-4); Lymphocytes # 1.3 K/mcL (0.6-4.6); Lymphocytes % 22.3 %; Mean Corpuscular HGB Conc 32.4 g/dL (31.6-35.5); Mean Corpuscular Hemoglobin 29.9 pg (28.0-33.3); Mean Corpuscular Volume 92.1 fL (83.0-100.0); Mean Platelet Volume 9.4 fL (9.4-12.4); Monocytes # 0.6 K/mcL (0.0-1.3); Monocytes % 10.8 %; Neutrophils # 3.6 K/mcL (1.6-8.9); Platelet Count 203 K/mcL (140-400); Red Blood Count 3.65 M/mcL (3.82-4.97); Red Cell Distribution Width 14.6 % (11.5-14.5); Segmented Neutrophils % 62.9 %; White Blood Count 5.7 K/mcL (4.3-11.1)
[2019-06-07 04:57] LABS: BUN/Creatinine Ratio 31 (6-26); Blood Urea Nitrogen 13 mg/dL (8-23); Calcium 8.7 mg/dL (8.6-10.3); Carbon Dioxide 29 mEq/L (23-29); Chloride 102 mEq/L (98-107); Glucose 97 mg/dL (70-105); Osmolality,Calculated 284 (280-300); Potassium 3.7 mEq/L (3.5-5.1); Sodium 137 mEq/L (136-145); eGFR For African Americans > 60 (> 60); eGFR For Non-African Americans > 60 (> 60)
--- NOTE | 2019-06-07 07:51 | Urology Progress Note ---
Date of Encounter: 06/07/19 Time of Encounter: 07:51 - Assessment and Plan (1) Hematuria Current Visit: Yes Status: Acute Assessment and plan: Gross hematuria has resolved the patient still with microscopic hematuria. Patient will require full outpatient workup with CT abdomen and pelvis followed by cystoscopy. From my standpoint okay to slowly resume any blood thinning medication. We will continue to follow along while patient in the hospital. Qualifiers: Hematuria type: gross Qualified Code(s): R31.0 - Gross hematuria (2) Supratherapeutic INR Current Visit: Yes Status: Acute Progress Note Narrative: Patient seen this morning. Patient states that her gross hematuria has resolved. Urinalysis for us today revealed negative infection but large blood. Objective Initial Vital Signs Temp Pulse Resp BP Pulse Ox 98.3 F 69 18 214/99 96 06/03/19 11:39 06/03/19 11:39 06/03/19 11:39 06/03/19 11:39 06/03/19 11:39 - General physical appearance Present: well developed, well nourished - Respiratory Present: normal expansion, normal respiratory effort - Abdomen Present: soft. Absent: tender - Labs 06/07/19 03:33 06/07/19 03:33 Diabetes panel 06/07/19 Range/Units 03:33 Sodium 137 (136-145) mEq/L Potassium 3.7 (3.5-5.1) mEq/L Chloride 102 (98-107) mEq/L Carbon Dioxide 29 (23-29) mEq/L BUN 13 (8-23) mg/dL Creatinine 0.42 L (0.60-1.20) mg/dL Glucose 97 (70-105) mg/dL Calcium 8.7 (8.6-10.3) mg/dL Calcium panel 06/07/19 Range/Units 03:33 Calcium 8.7 (8.6-10.3) mg/dL Pituitary panel 06/07/19 Range/Units 03:33 Sodium 137 (136-145) mEq/L Potassium 3.7 (3.5-5.1) mEq/L Chloride 102 (98-107) mEq/L Carbon Dioxide 29 (23-29) mEq/L BUN 13 (8-23) mg/dL Creatinine 0.42 L (0.60-1.20) mg/dL Glucose 97 (70-105) mg/dL Calcium 8.7 (8.6-10.3) mg/dL Adrenal panel 06/07/19 Range/Units 03:33 Sodium 137 (136-145) mEq/L Potassium 3.7 (3.5-5.1) mEq/L Chloride 102 (98-107) mEq/L Carbon Dioxide 29 (23-29) mEq/L BUN 13 (8-23) mg/dL Creatinine 0.42 L (0.60-1.20) mg/dL Glucose 97 (70-105) mg/dL Calcium 8.7 (8.6-10.3) mg/dL Consult Discharge Plan - Plan Referrals: Hector Laird MD [Primary Care Provider] - (Appt has been requested. )
--- NOTE | 2019-06-07 07:57 | Internal Med Progress Note ---
Hospitalist Progress Note - Encounter Date of Encounter: 06/07/19 Time of Encounter: 07:57 - Exam Vitals: Temp Pulse Resp BP Pulse Ox 98.3 F 86 16 169/97 91 06/07/19 03:17 06/07/19 03:17 06/07/19 03:17 06/07/19 03:17 06/07/19 03:17 Exam: General: A&O X 3. Appears more fatigued than yesterday. Head: atraumatic, normocephalic Eyes: EOMI, conjunctiva normal ENT: mucous membranes moist Resp: CTAB. No rales, respiratory distress, rhonchi, wheezes CV: RRR, +S1, +S2. No JVD, murmurs, rubs, gallops. GI: BS normoactive throughout, soft. No distention, rigidity, or tenderness Ext: RLE: swelling of the right leg from the right ankle to medial thigh appears continuing to improve. Tenderness improved. Ecchymosis present and unchanged from yesterday. Tavo: CN grossly intact, no focal deficits Skin: erythema, ecchymosis, swelling of the RLE - Assessment and Plan (1) Right leg DVT Current Visit: Yes Status: Acute (2) Hematuria Current Visit: Yes Status: Acute (3) Supratherapeutic INR Current Visit: Yes Status: Acute (4) Breast cancer, right Current Visit: No Status: Chronic (5) Hypertension Current Visit: Yes Status: Chronic - Time Spent with Patient Total time spent is greater than 50% in coordination of care (as documented) at patient's floor/unit and/or counseling patient: Internal Medicine: Result - Labs CBC & Chem 7: 06/07/19 03:33 06/07/19 03:33 Labs: Short CBC 06/06/19 06/07/19 Range/Units 09:52 03:33 WBC 6.8 5.7 (4.3-11.1) K/mcL Hgb 10.7 L 10.9 L (11.5-15.4) g/dL Hct 33.0 L 33.6 L (35.3-44.9) % Plt Count 182 203 (140-400) K/mcL Neutrophils # 4.9 3.6 (1.6-8.9) K/mcL BMP 06/07/19 03:33 Sodium 137 Potassium 3.7 Chloride 102 Carbon Dioxide 29 BUN 13 Creatinine 0.42 L Glucose 97 Calcium 8.7 Urine 06/06/19 Range/Units 10:48 Urine Color Red A (Yellow) Urine Clarity Cloudy A (Clear) Urine pH 7.5 (5.0-8.0) pH Units Ur Specific [place] 1.014 (1.010-1.025) Urine Protein 30 H (Neg-Trace) mg/dL Urine Glucose (UA) Normal (Normal) mg/dL - ABG Interpretation ABG results: PT/INR, D-dimer PT 17.8 Seconds (9.4-12.1) H D 06/06/19 00:29 Consult Discharge Plan - Plan Referrals: Hector Laird MD [Primary Care Provider] - (Appt has been requested. ) (1) Right leg DVT Qualifiers: Affected thrombotic vein of extremity: unspecified vein of extremity Chronicity: unspecified Qualified Code(s): I82.401 - Acute embolism and thrombosis of unspecified deep veins of right lower extremity (2) Hematuria Qualifiers: Hematuria type: gross Qualified Code(s): R31.0 - Gross hematuria (4) Breast cancer, right Qualifiers: Breast location: combined nipple and areola Estrogen receptor status: posit fei Patient sex: female Qualified Code(s): C50.011 - Malignant neoplasm of nipple and areola, right female breast; Z17.0 - Estrogen receptor positive status [ER+] (5) Hypertension Qualifiers: Hypertension type: essential hypertension Qualified Code(s): I10 - Essential (primary) hypertension
[2019-06-07] MEDS: Lisinopril 20 MG TABLET PO SCH (09:06)
[2019-06-07] MEDS: Aspirin 325 MG TABLET PO SCH (09:06)
[2019-06-07] MEDS: Anastrozole 1 MG TABLET PO SCH (09:06)
[2019-06-07] MEDS ORDERED: *HR* Enoxaparin 60 MG/0.6 ML SYRINGE SQ SCH (11:30)
[2019-06-07 11:37] VITALS: BP 167/71
--- NOTE | 2019-06-07 11:55 | Oncology Inp Progress Note ---
<Satnam Stacy - Last Filed: 06/07/19 16:25> Date of Encounter: 06/07/19 Time of Encounter: 16:25 Oncology: Obj Data - Labs CBC & Chem 7: 06/07/19 03:33 06/07/19 03:33 Consult Discharge Plan - Plan Instructions: Peripheral Vascular Disorders (DC), Chronic Hypertension (DC) Referrals: Larry Min MD [Partnered Physician] - Satnam Stacy MD [Partnered Physician] - Hector Laird MD [Primary Care Provider] - (Appt has been requested. ) Inpatient Charges Provider: Dr. Ronaldo Stacy Follow up - Inpatient: [id number] - Attending Attestation I examined this patient and my medical decision-making was reviewed with the Advanced Practice Nurse. I agree with the documented findings, disposition and treatment plan as described except to the extent set forth below. Patient to be d/c'ed today on lovenox SQ BID for therapeutic anticoagulation RLE pain/ swelling has improved Her hematuria has resolved She follows up with us in clinic this week If hematuria persists, will require outpatient cystoscopy for evaluation <Kristin Amezquita - Last Filed: 06/07/19 16:56> Date of Encounter: 06/07/19 (1) Acute deep vein thrombosis (DVT) of right popliteal vein Current Visit: Yes Status: Acute Assessment and plan: Lower extremity Doppler shows right superficial femoral vein through tibial vein acute thrombosis. Chronic partially occlusive thrombus in the right common femoral and acute partially occlusive thrombus in the right superficial femoral and partially occlusive thrombus in the right popliteal, right posterior tibial, right peroneal veins. A CT lower ext: Circumferential subcutaneous fat stranding in the right lower extremity most severe about the ankle and distal calf. Trochanteric or subgluteus medius bursitis. 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 Grade 2. s/p right mastectomy and SLN on 01/14/19: pT2 (3.8 cm) pN0 (0/2), invasive l obular carcinoma, Grade 2, LVI-, margins positive on inferior aspect of specimen. She completed radiotherapy and is on AI, started a month ago (3) Hematuria Current Visit: Yes Status: Acute Assessment and plan: Resolved with holding heparin gtt Evaluated by urology Recommending outpatient CT abdomen and cystoscopy Per urology, ok to restart anticoagulation Plan: Discussed case with hospitalist, discussed plan to restart AC with patient in detail Recommend starting therapeutic lovenox due to short half life in case patient develops further bleeding Patient was given strict instructions to stop lovenox and go to ER if she develops any acute hematuria Plan for first dose of lovenox to be given today with close monitoring prior to d/c She will keep follow up with Dr. Stacy this week and we will check H&H at that time Once cleared from bleeding/urology perspective plan to start eliquis or xarelto Qualifiers: Hematuria type: gross Qualified Code(s): R31.0 - Gross hematuria Oncology: Subj Interval history: Ms. Bailey is resting on the side of the bed. Denies pain, nausea, vomiting, chest pain, SOB, or s/s bleeding. Edema to RLE continues to improve, denies pain to RLE. Heparin was stopped when patient developed gross hematuria on 06/06, urology on board. Gross hematuria has since resolved today. UA with evidence of microscopic hematuria. - Constitutional General appearance: cooperative, no acute distress, no febrile - Head Head exam: Present: atraumatic - ENT ENT exam: Present: mucous membranes moist, normal oropharynx - Respiratory Respiratory exam: Present: CTAB. Absent: respiratory distress - Cardiovascular Cardiovascular exam: Present: RRR, +S1, +S2 - GI/Abdominal GI/Abdominal exam: Present: normal bowel sounds, soft. Absent: tenderness - Extremities Exam Additional comments: RLE edema, non pitting, ecchymosis to medial right thigh - Neurological Exam Neurological exam: Present: alert, oriented X3, no focal deficits, strengths equal and symetr throughout - Psychiatric Psychiatric exam: Present: normal affect, normal mood - Skin Skin exam: Present: dry, normal color, warm Oncology: Obj Data - Labs CBC & Chem 7: 06/07/19 03:33 06/07/19 03:33 Inpatient Charges Provider: Dr. Ronaldo Stacy
--- NOTE | 2019-06-07 13:25 | Discharge Summary ---
<Ignacio Lewis - Last Filed: 06/07/19 16:44> - NOTES TO OUTPATIENT PROVIDER Notes to Outpatient Provider: Pt is an 84 y/o F s/p mastectomy for breast cancer who presented to ED for progressive RLE DVT. U/S demonstrated multiple acute on chronic thrombi in the RLE. Warfarin was held, pt treated with Heparin gtt with improvement in symptoms. Later developed progressive hematuria. Urology consulted. Heparin was held with improvement. Plan to monitor on SQ lovenox and discharge if no further hematuria. Pt advised to monitor for hematuria and stop lovenox immediately and return to ED if symptoms develop. F/U with Heme/Onc this week. Urology recommends f/u with CT and possible cystoscopy. 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 Case was discussed with urology and heme/onc. - Start therapeutic lovenox today with close monitoring for hematuria. - Plan to discharge if no evidence of bleeding. - F/U with Dr. Stacy this week including H&H eval. - Urology f/u with CT, possible cystoscopy if persistent bleeding. - Plan to start eliquis or xarelto if cleared through urology. Qualifiers: Affected thrombotic vein of extremity: unspecified vein of extremity Chronicity: unspecified Qualified Code(s): I82.401 - Acute embolism and thrombosis of unspecified deep veins of right lower extremity (2) Hematuria Priority: Secondary Status: Acute Assessment and Plan: Patient developed progressive hematuria while on heparin drip for RLE DVT. Urology was consulted and recommended discontinuation of heparin. Symptoms improved significantly and it was discussed to d/c patient on therapeutic lovenox. - Pt advised to return to ED and stop lovenox immediately if symptoms of hematuria develop and/or persist. - Urology outpatient f/u including CT abdomen/pelvis and possible cystoscopy. Qualifiers: Hematuria type: gross Qualified Code(s): R31.0 - Gross hematuria (3) Supratherapeutic INR Priority: Secondary Status: Acute Assessment and Plan: Warfarin was held at the time of admission secondary to progressively worsening DVT. Pt states that she was treated with Warfarin as a monotherapy as an outpatient. INR stable at 1.6. PT decreased from 47.2 to 17.8. Platelets up from 182 to 203. Pt was started on heparin drip and developed hematuria. Vitamin K was given with no improvement. Heparin was d/c. Plan to discharge on lovenox. - Routine follow-up with heme/onc this Friday. - SQ lovenox today, will monitor closely and plan to discharge if no hematuria develops. (4) Breast cancer, right Priority: Secondary Status: Chronic Assessment and Plan: Follow-up with Dr. Stacy this Friday. Qualifiers: Breast location: combined nipple and areola Estrogen receptor status: positive Patient sex: female Qualified Code(s): C50.011 - Malignant neoplasm of nipple and areola, right female breast; Z17.0 - Estrogen receptor positive status [ER+] (5) Hypertension Priority: Secondary Status: Chronic Assessment and Plan: Pt had asymptomatic BP elevations throughout her stay. - Recommend PCP follow-up. - Continue home lisinopril and metoprolol at discharge. Qualifiers: Hypertension type: essential hypertension Qualified Code(s): I10 - Essential (primary) hypertension Hospital course: Ms. Bailey is a 84 year old female Discharge discussed with: patient, family, nurse - Time Spent with Patient Total time spent providing and/or coordinating discharge services: Time spent: Greater than 30 minutes - Discharge Medications Prescriptions: Continued Aspirin 325 mg PO DAILY Lisinopril [Zestril] 40 mg PO DAILY Citalopram Hydrobromide [Citalopram HBr] 20 mg PO DAILY Anastrozole [Arimidex] 1 mg PO DAILY Metoprolol Tartrate [Lopressor] 50 mg PO BID Discontinued Warfarin [Coumadin] 5 mg PO 1800 Home Medications: Anastrozole [Arimidex] 1 mg PO DAILY 06/03/19 [History] Aspirin 325 mg PO DAILY 06/03/19 [History] Citalopram Hydrobromide [Citalopram HBr] 20 mg PO DAILY 06/03/19 [History] Lisinopril [Zestril] 40 mg PO DAILY 06/03/19 [History] Metoprolol Tartrate [Lopressor] 50 mg PO BID 06/03/19 [History] Allergies/Adverse Reactions: Allergy/AdvReac Type Severity Reaction Status Date / Time No Known Allergies Allergy Verified 06/04/19 10:05 Date of admission: 06/05/19 16:58 Primary care physician: Hector Laird MD Consults: 06/03/19 17:21 Consult to Oncology Hematology [CONS] Routine Consulting Provider: Kylee Duarte Reason for Consult: Pt has history of recent ductal carcinoma of breast. New onset DVT, evaluate for possible migratory thrombophlebitis. Time Notified: 17:32 Call Completed: Yes 06/06/19 09:36 Consult to Urology [CONS] Routine Consulting Provider: Urology Juliane Reason for Consult: hematuria Time Notified: 09:36 Call Completed: Yes Discharging clinician: Ignacio Lewis Anticipated date of discharge: 06/07/19 - Constitutional Vitals: Temp Pulse Resp BP Pulse Ox 98.5 F 60 16 167/71 96 06/07/19 11:34 06/07/19 11:34 06/07/19 11:34 06/07/19 11:34 06/07/19 11:34 General appearance: Present: A&O X 3. Absent: no acute distress Exam: see below - Head Head exam: Present: atraumatic, normocephalic - Eye Eye exam: Present: EOMI, PERRL, conjuntiva pink - ENT ENT exam: Present: mucous membranes moist - Neck Neck exam general surgery: Present: supple. Absent: lymphadenopathy, tenderness - Respiratory Respiratory exam: Present: CTAB. Absent: rales, respiratory distress, rhonchi, wheezes - Cardiovascular Cardiovascular exam: Present: RRR, +S1, +S2. Absent: diastolic murmur, JVD, systolic murmur - GI/Abdominal GI/Abdominal exam: Present: normal bowel sounds, soft. Absent: distended, guarding, tenderness - Extremities Exam Additional comments: RLE swelling improved. Ecchymosis of the RLE improved considerably. Mild tenderness throughout which has improved. - Neurological Exam Neurological exam: Present: alert, CN II-XII intact, no focal deficits. Absent: speech deficit - Skin Additional comments: Resolving edema and ecchymosis of RLE 2/2 DVT - Patient Status Disposition: Home, Self-Care Condition: Good Functional capacity at discharge: independent ambulation Overall status at discharge: patient is progressing back to baseline - Discharge Instructions Instructions: Peripheral Vascular Disorders (DC), Chronic Hypertension (DC) Follow Up With: Larry Min MD [Partnered Physician] - (Office will call with date and time of appointment. ) Satnam Stacy MD [Partnered Physician] - (Office will call with date and time of appointment. ) Hector Laird MD [Primary Care Provider] - (Appt has been requested. 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 Bailey is a 84 year old female - Time Spent with Patient Total time spent providing and/or coordinating discharge services: Date of admission: 06/05/19 16:58 Primary care physician: Hector Laird MD Consults: 06/03/19 17:21 Consult to Oncology Hematology [CONS] Routine Consulting Provider: Kylee Duarte Reason for Consult: Pt has history of recent ductal carcinoma of breast. New onset DVT, evaluate for possible migratory thrombophlebitis. Time Notified: 17:32 Call Completed: Yes 06/06/19 09:36 Consult to Urology [CONS] Routine Consulting Provider: Urology Juliane Reason for Consult: hematuria Time Notified: 09:36 Call Completed: Yes - Constitutional Vitals: Temp Pulse Resp BP Pulse Ox 98.5 F 60 16 167/71 96 06/07/19 11:34 06/07/19 11:34 06/07/19 11:34 06/07/19 11:34 06/07/19 11:34 - Attending Attestation I examined this patient and my medical decision-making was reviewed with the Resident Physician on 06/07/19. I agree with the documented findings, disposition and treatment plan as described except to the extent set forth below. Ms Bailey has been admitted for acute DVT RLE. She had been on warfarin with supratherapeutic level. She was placed on heparin drip with improvement. She was to be transitioned to Xarelto but developed gross hematuria. H/H stable. Heparin stopped. She was evaluated by urology and will have further outpatient work up. She was started on Lovenox and will follow up with oncology this week. Exam Alert. pleasant. Not tachycardic Edema much improved. Plan D/C home today Stop Lovenox if any bleeding. Follow up as arranged D/C time 35min
== END 2019-06-07 17:48 | disposition home or self-care (01) | DRG 301 ==
LOC: EMEROOARM 11:38 → 3BNU 11:38 → SUATTDRO 15:18 → 3BNU 16:04
PROVIDERS: ADMIT Internal Medicine; ATTEND Internal Medicine